=== PATIENT | male | born 1970 | race Two or more races ===

== ENCOUNTER 2016-04-29 22:05 | Emergency (ER) | payer OTHER ==
[2016-04-29 22:45] LABS: BASOPHIL % 0.7 % (0-2); PLATELET COUNT 266 x10^3mcL (130-400); RED CELL DISTRIBUTION WIDTH 13.6 % (11.5-14.5)
[2016-04-29 22:53] LABS: CALCIUM 8.8 mg/dL (8.5-10.1); CARBON DIOXIDE 29.5 mmol/L (21-32); CREATININE SERUM 1.4 mg/dL (0.7-1.3); POTASSIUM SERUM 3.8 mmol/L (3.5-5.1)
[2016-04-29 22:58] LABS: ALBUMIN 3.9 g/dL (3.4-5.0); BILIRUBIN TOTAL 0.4 mg/dL (0.20-1.00); TOTAL PROTEIN, SERUM 7.9 g/dL (6.4-8.2)
[2016-04-29 23:28] VITALS: BP 132/76
== END 2016-04-29 23:28 | disposition home or self-care (01) ==
LOC: ED 22:05
PROVIDERS: Emergency Medicine
DX: R07.89 Other chest pain (principal)
CPT/HCPCS: 83880; Q0092